=== PATIENT | female | born 1950 | race Caucasian/White ===

== ENCOUNTER 2016-12-25 19:09 | Emergency (ER) | payer BC ==
[2016-12-25 19:20] VITALS: BP 224/116
--- NOTE | 2016-12-25 19:41 | UC ---
Skin Complaint HPI - HPI Summary HPI Summary: STARTED FEELING "HOT" TODAY AFTER CT SCAN WITH IV CONTRAST. WAS PREMEDICATED WITH BENADRYL AND PREDNISONE BUT NOW HAS FACIAL FLUSHING AND REDNESS TO HER UPPER CHEST AND BACK. NOT ITCHY. IS VERY ANXIOUS. DENIES CP, SOB, NAUSEA BUT DOES HAVE A FAUSTIN. EYES FEEL GRITTY. - History of Current Complaint Chief Complaint: UCAllergicReaction Time Seen by Provider: 12/25/16 19:35 Stated Complaint: REDNESS OF THE FACE AND NECK Hx Obtained From: Patient Onset/Duration: Gradual Onset, Lasting Hours, Still Present Timing: Constant Onset Severity: Moderate Current Severity: Moderate Pain Intensity: 0 Pain Scale Used: 0-10 Numeric Character: Redness Aggravating Factor(s): Nothing Alleviating Factor(s): Nothing Associated Signs & Symptoms: Positive: Rash - Allergy/Home Medications Allergies/Adverse Reactions: Allergies Allergy/AdvReac Type Severity Reaction Status Date / Time Doxycycline Allergy RASH, Verified 12/25/16 19:20 FACIAL SWELLING Penicillins Allergy Rash Verified 12/25/16 19:20 Quinolones Allergy Shakes Verified 12/25/16 19:21 Sulfamethoxazole Allergy RASH, Verified 12/25/16 19:20 w/Trimethoprim FACIAL [From Bactrim] SWELLING Review of Systems Constitutional: Negative Skin: Rash ENT: Negative Respiratory: Negative Cardiovascular: Negative Gastrointestinal: Negative Neurological: Headache All Other Systems Reviewed And Are Negative: Yes PMH/Surg Hx/FS Hx/Imm Hx Endocrine History: Diabetes Cardiovascular History: Hypertension Other Cardiovascular History: SUBCLAVIAN STEAL SYNDROME Psychological History: Anxiety, Depression - Surgical History Surgical History: Yes Surgery Procedure, Year, and Place: LEFT and right [place]ARACT [place], [facility] 12/24/16 - Family History Known Family History: Positive: Cardiac Disease, Hypertension, Diabetes Family History: SUBCLAVIAN STEAL SYNDROME - Social History Alcohol Use: None Substance Use Type: None Smoking Status (MU): Light Every Day Tobacco Smoker Type: Cigarettes Amount Used/How Often: 1/2 PACK A DAY Length of Time of Smoking/Using Tobacco: 50 pack year history quit smiking three weeks ago Have You Smoked in the Last Year: No Physical Exam Triage Information Reviewed: Yes Appearance: Well-Appearing, No Pain Distress, Well-Nourished Vital Signs: Initial Vital Signs Temp 98.6 F 12/25/16 19:15 Pulse 115 12/25/16 19:15 Resp 18 12/25/16 19:15 BP 224/116 12/25/16 19:15 Pulse Ox 98 12/25/16 19:15 Vital Signs Reviewed: Yes Eyes: Positive: Conjunctiva Clear ENT: Positive: Hearing grossly normal Neck: Positive: Supple Respiratory Exam: Normal Cardiovascular: Positive: Tachycardia Abdomen Description: Positive: Soft Musculoskeletal: Positive: No Edema Neurological: Positive: Alert Psychological: Positive: Age Appropriate Behavior Skin: Positive: Other - RUDDINESS TO FACE, UPPER CHEST AND UPPER BACK. Course/Dx - Course Course Of Treatment: PT WITH POSSIBLE ALLERGIC REACTION TO IV CONTRAST FROM CT SCAN TODAY. PT NOTED TO HAVE DANGEROUSLY HIGH BP. UNABLE TO ADMINISTER MEDICATIONS TO COUNTERACT ALLERGY HERE GIVEN BP OF 224/116. PT TO GO DIRECTLY TO THE ER FROM HERE. AMBULANCE DECLINED. - Diagnoses Provider Diagnoses: 1. POSSIBLE ALLERGIC REACTION TO IV CONTRAST. 2. UNCONTROLLED HTN Discharge - Discharge Plan Condition: Stable Disposition: OTHER Discharge Disposition Comment: TO [facility] BY PRIVATE CAR Patient Education Materials: General Allergic Reaction (ED) Referrals: Betrin Bo MD [Primary Care Provider] - 1 Week Additional Instructions: GIVEN YOUR ELEVATED BP OF 224/116 WE ARE UNABLE TO TREAT YOU FOR ALLERGIC REACTION SAFELY. GO DIRECTLY TO THE [facility] FROM HERE FOR FURTHER EVALUATION.
== END 2016-12-25 19:52 ==
LOC: UCEAST 19:09
DX: R21 Rash and other nonspecific skin eruption (principal); R23.2 Flushing; F41.9 Anxiety disorder, unspecified; I10 Essential (primary) hypertension; E11.9 Type 2 diabetes mellitus without complications; G45.8 Other transient cerebral ischemic attacks and related syndromes; F32.9 Major depressive disorder, single episode, unspecified; Z98.41 Cataract extraction status, right eye; Z98.42 Cataract extraction status, left eye; Z88.1 Allergy status to other antibiotic agents; Z88.0 Allergy status to penicillin; Z88.2 Allergy status to sulfonamides; F17.210 Nicotine dependence, cigarettes, uncomplicated
CPT/HCPCS: 99212; G0463

== ENCOUNTER 2016-12-25 20:05 | Emergency (ER) | payer BC ==
[2016-12-25] MEDS ORDERED: NS 0.9% 1000 ML* 1,000 ML IV SCH (21:15)
[2016-12-25 21:29] LABS: Hematocrit 39 % (35-47); Hemoglobin 13.6 g/dl (12.0-16.0); Mean Corpuscular HGB Conc 35 g/dl (31-36); Mean Corpuscular Hemoglobin 33 pg (27-31); Mean Corpuscular Volume 95 fL (80-97); Mean Platelet Volume 8 um3 (7.4-10.4); Red Blood Count 4.14 10^6/ul (4.0-5.4); Red Cell Distribution Width 12 % (10.5-15); White Blood Count 19.9 10^3/ul (3.5-10.8)
[2016-12-25 21:30] LABS: Add Diff/Slide Review? Slide Review Added; Comments Flag Yes
[2016-12-25 21:49] LABS: ALT 13 U/L (7-52); AST 13 U/L (13-39); Albumin 4.3 g/dL (3.2-5.2); Alkaline Phosphatase 79 U/L (34-104); Anion Gap 10 mmol/L (2-11); Blood Urea Nitrogen 9 mg/dL (6-24); C Reactive Protein < 1.00 mg/L (< 5.00); CO2 Carbon Dioxide 23 mmol/L (22-32); Calcium 9.1 mg/dL (8.6-10.3); Chloride 103 mmol/L (101-111); Creatine Kinase 41 U/L (10-223); EGFR African American 99.1 (>60); EGFR Non-African American 77.1 (>60); Globulin 2.4 g/dL (2-4); Glucose 139 mg/dL (70-100); Lipase 44 U/L (11.0-82.0); Magnesium 2.1 mg/dL (1.9-2.7); Potassium 3.1 mmol/L (3.5-5.0); Sodium 136 mmol/L (133-145); Total Protein 6.7 g/dL (6.4-8.9)
--- NOTE | 2016-12-25 21:57 | RAD ---
INDICATION: Hypertension. COMPARISON: There are no prior studies available for comparison. TECHNIQUE: A portable view of the chest was obtained. FINDINGS: Cardiac and mediastinal contours appear to be within normal limits. The lungs are underinflated. There are small infiltrates at both lung bases. No pleural effusion is seen. IMPRESSION: UNDERINFLATION, SMALL BIBASILAR INFILTRATES.
[2016-12-25 22:04] LABS: TSH (Thyroid Stimulating Horm) 1.67 mcIU/mL (0.34-5.60)
[2016-12-25] MEDS ORDERED: Famotidine IV* 10 MG/ML 2 ML (20 mg) IV ONE (22:04)
[2016-12-25] MEDS ORDERED: methylPREDNISolone 125 MG* 2 ML VIAL IV ONE (22:04)
[2016-12-25] MEDS ORDERED: diPHENhydraMINE IV* 50 MG/ML 1 ml VIAL (BENADRYL) IV ONE (22:04)
[2016-12-25 22:24] LABS: Urine Bilirubin Negative (Negative); Urine Glucose 1+(50 mg/dL) (Negative); Urine Nitrite Negative (Negative)
[2016-12-25] MEDS ORDERED: Acetaminophen TAB* 325 MG PO ONE (22:40)
[2016-12-25 23:21] VITALS: BP 173/89
[2016-12-26] MEDS ORDERED: diPHENhydraMINE PO* 25 MG PO ONE (00:37)
[2016-12-26] MEDS ORDERED: predniSONE TAB* 20 MG PO ONE (00:42)
--- NOTE | 2016-12-26 00:46 | ED ---
Gavino Madrigal Alfonso, scribed for Shaq May MD on 12/25/16 at 2153 . Complex/Multi-Sys Presentation - HPI Summary HPI Summary: This patient is a 66 year old F presenting to [facility] accompanied by daughter with a chief complaint of a rash since waking up at 1600 today. The rash is at her face and trunk. She reports a CT A/P with contrast earlier today, for which she was pre-medicated with Prednisone and Benadryl. The patient rates the pain 0 /10 in severity. Symptoms alleviated by nothing. Patient reports neck swelling, facial swelling, post nasal drip, and high blood pressure. Patient denies difficulty swallowing, sore throat, and abdominal pain. PMHx includes Subclavian steal syndrome, HTN, DM, and depression. - History Of Current Complaint Chief Complaint: EDHypertension Time Seen by Provider: 12/25/16 20:59 Hx Obtained From: Patient Onset/Duration: Sudden Onset, Lasting Hours, Still Present Timing: Constant Alleviating Factor(s): nothing. Associated Signs And Symptoms: Positive: Other - neck swelling, facial swelling , post nasal drip, and high blood pressure. Patient denies difficulty swallowing , sore throat, and abdominal pain - Allergies/Home Medications Allergies/Adverse Reactions: Allergies Allergy/AdvReac Type Severity Reaction Status Date / Time Doxycycline Allergy RASH, Verified 12/25/16 19:20 FACIAL SWELLING Penicillins Allergy Rash Verified 12/25/16 19:20 Quinolones Allergy Shakes Verified 12/25/16 19:21 Sulfamethoxazole Allergy RASH, Verified 12/25/16 19:20 w/Trimethoprim FACIAL [From Bactrim] SWELLING PMH/Surg Hx/FS Hx/Imm Hx Endocrine/Hematology History: Reports: Hx Diabetes - TYPE 2 Cardiovascular History: Reports: Hx Hypertension - ON MEDS, Hx Peripheral Vascular Disease - SUBCLAVIAN STEAL SYNDROME Denies: Other Cardiovascular Problems/Disorders Respiratory History: Denies: Other Respiratory Problems/Disorders GI History: Reports: Hx Irritable Bowel - IN THE PAST Denies: Other GI Disorders Musculoskeletal History: Reports: Other Musculoskeletal History - FIBROMYALGIA Sensory History: Reports: Hx Cataracts - SADE, Hx Contacts or Glasses - READING GLASSES Denies: Hx Hearing Aid Opthamlomology History: Reports: Hx Cataracts - SADE, Hx Contacts or Glasses - READING GLASSES Neurological History: Denies: Other Neuro Impairments/Disorders Psychiatric History: Reports: Hx Depression - ON MEDS - Surgical History Surgery Procedure, Year, and Place: LEFT and right CATARACT 2006, [facility], colonoscopy 12/24/16 Hx Anesthesia Reactions: No Infectious Disease History: No Infectious Disease History: Denies: History Other Infectious Disease, Traveled Outside the [place] in Last 30 Days - Family History Known Family History: Positive: Cardiac Disease, Hypertension, Diabetes Family History: SUBCLAVIAN STEAL SYNDROME - Social History Alcohol Use: None Substance Use Type: Reports: None Smoking Status (MU): Light Every Day Tobacco Smoker Type: Cigarettes Amount Used/How Often: 1/2 PACK A DAY Length of Time of Smoking/Using Tobacco: 50 pack year history quit smiking three weeks ago Have You Smoked in the Last Year: No Review of Systems Positive: Other - Post nasal drip; negative difficulty swallowing, sore throat Positive: Other - high blood pressure Negative: Abdominal Pain Positive: Other - neck swelling, facial swelling Positive: Rash All Other Systems Reviewed And Are Negative: Yes Physical Exam - Summary Physical Exam Summary: General: well-appearing, no pain distress Skin: warm, color reflects adequate perfusion, dry. Blanching rash on upper truck and face. Head: normal Eyes: EOMI, SUSAN ENT: normal Neck: supple, nontender Respiratory: CTA, breath sounds present Cardiovascular: RRR Abdomen: soft, nontender Bowel: present Musculoskeletal: normal, strength/ROM intact Neurological: normal, sensory/motor intact, A&O x3 Psychological: mildly anxious. Triage Information Reviewed: Yes Vital Signs On Initial Exam: Initial Vitals Temp Pulse Resp BP Pulse Ox 98.5 F 97 20 215/96 97 12/25/16 20:24 12/25/16 20:24 12/25/16 20:24 12/25/16 20:24 12/25/16 20:24 Vital Signs Reviewed: Yes - [place] Coma Scale Coma Scale Total: 15 Diagnostics - Vital Signs Vital Signs Temp Pulse Resp BP Pulse Ox 12/25/16 21:30 86 15 205/96 96 12/25/16 21:24 90 21 96 12/25/16 20:24 98.5 F 97 20 215/96 97 - Laboratory Lab Results: Lab Results 12/25/16 12/25/16 12/25/16 Range/Units 21:15 21:15 21:15 WBC 19.9 H (3.5-10.8) 10^3/ul RBC 4.14 (4.0-5.4) 10^6/ul Hgb 13.6 (12.0-16.0) g/dl Hct 39 (35-47) % MCV 95 (80-97) fL MCH 33 H (27-31) pg MCHC 35 (31-36) g/dl RDW 12 (10.5-15) % Plt Count 290 (150-450) 10^3/ul MPV 8 (7.4-10.4) um3 Neut % (Auto) 83.4 H (38-83) % Lymph % (Auto) 7.7 L (25-47) % Lane % (Auto) 8.6 (1-9) % Eos % (Auto) 0 (0-6) % Baso % (Auto) 0.3 (0-2) % Absolute Neuts (auto) 16.6 H (1.5-7.7) 10^3/ul Absolute Lymphs (auto) 1.5 (1.0-4.8) 10^3/ul Absolute Monos (auto) 1.7 H (0-0.8) 10^3/ul Absolute Eos (auto) 0 (0-0.6) 10^3/ul Absolute Basos (auto) 0.1 (0-0.2) 10^3/ul Absolute Nucleated RBC 0 10^3/ul Nucleated RBC % 0 INR (Anticoag Therapy) 0.82 L (0.89-1.11) APTT 25.7 L (26.0-36.3) seconds Sodium 136 (133-145) mmol/L Potassium 3.1 L (3.5-5.0) mmol/L Chloride 103 (101-111) mmol/L Carbon Dioxide 23 (22-32) mmol/L Anion Gap 10 (2-11) mmol/L BUN 9 (6-24) mg/dL Creatinine 0.75 (0.51-0.95) mg/dL Est GFR ( Amer) 99.1 (>60) Est GFR (Non-Af Amer) 77.1 (>60) BUN/Creatinine Ratio 12.0 (8-20) Glucose 139 H (70-100) mg/dL Lactic Acid (0.5-2.0) mmol/L Calcium 9.1 (8.6-10.3) mg/dL Magnesium 2.1 (1.9-2.7) mg/dL Total Bilirubin 0.80 (0.2-1.0) mg/dL AST 13 (13-39) U/L ALT 13 (7-52) U/L Alkaline Phosphatase 79 (34-104) U/L Total Creatine Kinase 41 (10-223) U/L CK-MB (CK-2) Pending Troponin I Pending C-Reactive Protein < 1.00 (< 5.00) mg/L Total Protein 6.7 (6.4-8.9) g/dL Albumin 4.3 (3.2-5.2) g/dL Globulin 2.4 (2-4) g/dL Albumin/Globulin Ratio 1.8 (1-3) Lipase 44 (11.0-82.0) U/L TSH Pending 12/25/16 Range/Units 21:15 WBC (3.5-10.8) 10^3/ul RBC (4.0-5.4) 10^6/ul Hgb (12.0-16.0) g/dl Hct (35-47) % MCV (80-97) fL MCH (27-31) pg MCHC (31-36) g/dl RDW (10.5-15) % Plt Count (150-450) 10^3/ul MPV (7.4-10.4) um3 Neut % (Auto) (38-83) % Lymph % (Auto) (25-47) % Lane % (Auto) (1-9) % Eos % (Auto) (0-6) % Baso % (Auto) (0-2) % Absolute Neuts (auto) (1.5-7.7) 10^3/ul Absolute Lymphs (auto) (1.0-4.8) 10^3/ul Absolute Monos (auto) (0-0.8) 10^3/ul Absolute Eos (auto) (0-0.6) 10^3/ul Absolute Basos (auto) (0-0.2) 10^3/ul Absolute Nucleated RBC 10^3/ul Nucleated RBC % INR (Anticoag Therapy) (0.89-1.11) APTT (26.0-36.3) seconds Sodium (133-145) mmol/L Potassium (3.5-5.0) mmol/L Chloride (101-111) mmol/L Carbon Dioxide (22-32) mmol/L Anion Gap (2-11) mmol/L BUN (6-24) mg/dL Creatinine (0.51-0.95) mg/dL Est GFR ( Amer) (>60) Est GFR (Non-Af Amer) (>60) BUN/Creatinine Ratio (8-20) Glucose (70-100) mg/dL Lactic Acid 2.6 H* (0.5-2.0) mmol/L Calcium (8.6-10.3) mg/dL Magnesium (1.9-2.7) mg/dL Total Bilirubin (0.2-1.0) mg/dL AST (13-39) U/L ALT (7-52) U/L Alkaline Phosphatase (34-104) U/L Total Creatine Kinase (10-223) U/L CK-MB (CK-2) Troponin I C-Reactive Protein (< 5.00) mg/L Total Protein (6.4-8.9) g/dL Albumin (3.2-5.2) g/dL Globulin (2-4) g/dL Albumin/Globulin Ratio (1-3) Lipase (11.0-82.0) U/L TSH Result Diagrams: 12/25/16 21:15 12/25/16 21:15 Lab Statement: Any lab studies that have been ordered have been reviewed, and results considered in the medical decision making process. - Radiology CXR Radiology Interpretation Completed By: Radiologist - UNDERINFLATION, SMALL BIBASILAR INFILTRATES. ED physician has reviewed this radiology report and agrees. - EKG 2127 Cardiac Rate: NL - BPM 86 EKG Rhythm: Sinus Rhythm ST Segment: Normal Ectopy: None Complex Multi-Symp Course/Dx Course Of Treatment: ALLERGY SX AND BP IMPROVED IN ED AFTER TREATING ALLERGIC REACTION. PATIENT HAS NOT BEEN TAKING HER POTASSIUM SUPPLEMENTS AT HOME. ELEVATED WBC MAY BE DUE TO BEING ON STEROIDS. F/U PMD; RETURN IF WORSE. NO CRITICAL CARE TIME. - Diagnoses Provider Diagnoses: Allergic reaction, Hypokalemia, Hypertension Discharge - Discharge Plan Condition: Stable Disposition: HOME Prescriptions: Famotidine TAB* [Pepcid 20 MG TAB*] 20 mg PO BID PRN #8 tab PRN Reason: Allergy Symptoms predniSONE TAB* [Deltasone TAB*] 40 mg PO DAILY PRN #8 tab PRN Reason: Allergy Symptoms Patient Education Materials: Hypertension (ED), General Allergic Reaction (ED) , Hypokalemia (ED) Referrals: Bertin Bo MD [Primary Care Provider] - Additional Instructions: FOLLOW UP WITH YOUR DOCTOR. TAKE YOUR BLOOD PRESSURE MEDICATIONS AND POTASSIUM DIRECTED. TAKE BENADRYL 50MG EVERY 6 HOURS NEEDED. TAKE PEPCID 20MG TWICE A DAY NEEDED. TAKE PREDNISONE DIRECTED NEEDED. RETURN TO THE EMERGENCY DEPARTMENT FOR ANY WORSENING OF YOUR CONDITION OR QUESTIONS OR CONCERNS. The documentation as recorded by the Gavino pederson Alfonso accurately reflects the service I personally performed and the decisions made by me, Shaq May MD.
== END 2016-12-26 01:15 | disposition home or self-care (01) ==
LOC: ED 20:05
DX: T78.40XA Allergy, unspecified, initial encounter (principal); I10 Essential (primary) hypertension; E87.6 Hypokalemia; X58.XXXA Exposure to other specified factors, initial encounter
CPT/HCPCS: 36415; 71010; 80053; 81003; 82550; 82553; 83605; 83690; 83735; 83880; 84443; 84484; 85025; 85610; 85730; 86140; 93005; 96374; 96375; 99283; A9270-GY; J1200; J2930; J7512